=== PATIENT | female | born 1985 | race African-American/Black ===

== ENCOUNTER 2017-02-28 17:23 | Outpatient (CLI) | payer MEDICAID ==
[2017-02-28 18:26] LABS: APPEARANCE,URINE SLIGHTLY-CLOUDY; BILIRUBIN,URINE NEGATIVE (NEGATIVE); GLUCOSE, URINE NEGATIVE (NEGATIVE); KETONES,URINE TRACE mg/dL (NEGATIVE); LEUKOCYTE ESTERASE,URINE NEGATIVE (NEGATIVE); NITRITE,URINE NEGATIVE (NEGATIVE); PROTEIN,URINE NEGATIVE (NEGATIVE); URINE SPECIFIC GRAVITY 1.029; UROBILINOGEN,URINE NEGATIVE mg/dL (<2.0)
[2017-02-28 18:44] LABS: URINE BARBITURATES SCREEN NEGATIVE; URINE METHADONE SCREEN NEGATIVE; URINE OPIATES LOW NEGATIVE; URINE PHENCYCLIDINE SCREEN NEGATIVE
== END 2017-02-28 19:30 | disposition home or self-care (01) ==
LOC: EDSTATUS 17:36 → LC 17:44
PROVIDERS: ATTEND Obstetrics & Gynecology
PROC: 4A1HXCZ Monitoring of Products of Conception, Cardiac Rate, External Approach (ICD-10-PCS; principal; 2017-02-28)
DX: O46.92 Antepartum hemorrhage, unspecified, second trimester (principal); Z3A.20 20 weeks gestation of pregnancy
CPT/HCPCS: 80307; 81001; 82962

== ENCOUNTER 2017-05-28 10:41 | Outpatient (CLI) | payer MEDICAID | END 2017-05-28 11:35 | disposition home or self-care (01) | LOC: LC 10:41 | PROVIDERS: ATTEND Obstetrics & Gynecology | PROC: 4A1HXCZ Monitoring of Products of Conception, Cardiac Rate, External Approach (ICD-10-PCS; principal; 2017-05-28) | DX: Z34.93 Encounter for supervision of normal pregnancy, unspecified, third trimester (principal); Z36 Encounter for antenatal screening of mother; Z3A.33 33 weeks gestation of pregnancy | CPT/HCPCS: 59025 ==

== ENCOUNTER 2017-06-17 11:21 | Outpatient (CLI) | payer MEDICAID | END 2017-06-17 12:11 | disposition hospice, home (50) | LOC: LC 11:21 | PROVIDERS: ATTEND Obstetrics & Gynecology | PROC: 4A1HXCZ Monitoring of Products of Conception, Cardiac Rate, External Approach (ICD-10-PCS; principal; 2017-06-17) | DX: O24.913 Unspecified diabetes mellitus in pregnancy, third trimester (principal); Z3A.36 36 weeks gestation of pregnancy | CPT/HCPCS: 59025 ==

== ENCOUNTER 2017-06-28 04:03 | Inpatient (IN) | payer MEDICAID ==
--- NOTE | 2017-06-28 04:12 | Non Stress Test Report ---
Non Stress Test Datetime Report Generated by CPN: 06/28/2017 04:12 DEMOGRAPHIC EGA NST: 36.2 EGA NST: 33.3 INDICATION Indication for Study: Diabetes Mellitus; Ordered by Provider Indication for Study: Ordered by Provider VITAL SIGNS Temperature - NST: 97.6 Pulse - NST: 80 RESP - NST: 17 NBPSYS NST: 132 NBPDIA NST: 61 MONITORING Monitor Explained: Monitor Explained; Test Explained; Patient Verbalized Understanding Monitor Explained: Monitor Explained; Test Explained; Patient Verbalized Understanding Time on Monitor: 06/17/2017 11:36 Time on Monitor: 05/28/2017 10:56 Time off Monitor: 06/17/2017 12:06 Time off Monitor: 06/17/2017 12:06 NST Duration: 30 NST Duration: 10593 NST INTERVENTIONS NST Interventions: PO Hydration; Reposition Patient; Oxytocin Challenge Test NST Interventions: PO Hydration Physician Notified NST: H Jaiden CNM BABY A: [id number] BABY A Movement : Present Movement : Present Contraction Frequency : denies FHR Baseline : 135 FHR Baseline : 135 Accelerations : 15X15 Decelerations : None Variability : Moderate 6-25bpm NST Review: Meets Criteria for Reactive NST NST Review and Verified By : Hoa Barros, RN NST Results: Reactive NST REPORT Report Trigger: Send Report
[2017-06-28] MEDS ORDERED: LIDOCAINE 1% INJ-PF (10 MG/ML) 30 ML SDV ONE (04:15)
[2017-06-28] MEDS ORDERED: MISOPROSTOL 0.2 MG TABLET ONE (04:15)
[2017-06-28] MEDS ORDERED: OXYTOCIN/NORMAL SALINE 20 UNIT/1,000 ML RTUINJ ONE (04:16)
[2017-06-28] MEDS ORDERED: PENICILLIN G-K 5 MILLION UNIT VIAL ONE (04:16)
[2017-06-28] MEDS ORDERED: PENICILLIN G POTASSIUM 5,000,000 UNIT in DEXTROSE 5%-WATER 100 ML IV ONE (04:18)
[2017-06-28] MEDS ORDERED: RINGERS SOLUTION,LACTATED 1,000 ML IV PRN (04:18)
[2017-06-28 04:35] LABS: APPEARANCE,URINE SLIGHTLY-CLOUDY; BILIRUBIN,URINE NEGATIVE (NEGATIVE); GLUCOSE, URINE NEGATIVE (NEGATIVE); KETONES,URINE NEGATIVE (NEGATIVE); LEUKOCYTE ESTERASE,URINE SMALL (NEGATIVE); NITRITE,URINE NEGATIVE (NEGATIVE); PROTEIN,URINE 30 mg/dL (NEGATIVE); URINE SPECIFIC GRAVITY 1.026; UROBILINOGEN,URINE NEGATIVE mg/dL (<2.0)
[2017-06-28 04:52] LABS: URINE BARBITURATES SCREEN NEGATIVE; URINE METHADONE SCREEN NEGATIVE; URINE OPIATES LOW NEGATIVE; URINE PHENCYCLIDINE SCREEN NEGATIVE
[2017-06-28] MEDS ORDERED: PENICILLIN G-K 5 MILLION UNIT VIAL IV PRN (04:53)
[2017-06-28 05:12] LABS: ABSOLUTE BASOPHILS # (AUTO) 0.1 10^3/uL (0.0-0.2); ABSOLUTE LYMPHOCYTES (AUTO) 2.1 10^3/uL (0.5-4.7); ABSOLUTE MONOCYTES (AUTO) 0.8 10^3/uL (0.1-1.4); ABSOLUTE NEUT (AUTO) 12.8 10^3/uL (1.7-8.2); BASOPHILS % (AUTO) 0.7 % (0-2); EOSINOPHILS % (AUTO) 0.1 % (0-6); HEMOGLOBIN 12.6 g/dL (12.0-15.5); HGB HCT DIFFERENCE -0.2; LYMPHOCYTES % (AUTO) 13.5 % (13-45); MEAN CORPUSCULAR HEMOGLOBIN 30.4 pg (27.0-33.4); MEAN CORPUSCULAR VOLUME 92 fl (80-97); MONOCYTES % (AUTO) 5.1 % (3-13); RED BLOOD COUNT 4.14 10^6/uL (3.72-5.28); RED CELL DISTRIBUTION WIDTH 13.7 % (11.5-14.0); SEGMENTED NEUTROPHILS % (AUTO) 80.6 % (42-78); WHITE BLOOD COUNT 15.8 10^3/uL (4.0-10.5)
[2017-06-28 06:02] LABS: CHLAM PCR DETECTED (NOT DETECT)
[2017-06-28] MEDS ORDERED: ZOLPIDEM TARTRATE 5 MG TABLET PO PRN (06:04)
[2017-06-28] MEDS ORDERED: GLYCERIN/WITCH HAZEL LEAF 1 EACH MED..PAD TP PRN (06:04)
[2017-06-28] MEDS ORDERED: PROMETHAZINE HCL 25 MG SUPP.RECT PR PRN (06:04)
[2017-06-28] MEDS ORDERED: MAGNESIUM HYDROXIDE SUSP 30 ML UDCUP PO PRN (06:04)
[2017-06-28] MEDS ORDERED: ACETAMINOPHEN 650 MG SUPP.RECT PR PRN (06:04)
[2017-06-28] MEDS ORDERED: BENZOCAINE/MENTHOL AEROSOL SPRAY 56 ML TOP PRN (06:04)
[2017-06-28] MEDS ORDERED: OXYTOCIN/NORMAL SALINE 1,000 ML IV PRN (06:04)
[2017-06-28] MEDS ORDERED: DIBUCAINE 1% OINTMENT 28 GM TP PRN (06:04)
[2017-06-28] MEDS ORDERED: PROMETHAZINE HCL INJ 25 MG/1 ML VIAL IV PRN (06:04)
[2017-06-28] MEDS ORDERED: DIPHENHYDRAMINE HCL 25 MG CAPSULE PO PRN (06:04)
[2017-06-28] MEDS ORDERED: PROMETHAZINE HCL 25 MG TABLET PO PRN (06:04)
[2017-06-28] MEDS ORDERED: MEASLES,MUMPS&RUBELLA VACC/PF 0.5 ML VIAL SUBCUT PRN (06:04)
[2017-06-28] MEDS ORDERED: NA PHOS,M-B/NA PHOS,DI-BA (ADULT) 133 ML ENEMA PR PRN (06:04)
[2017-06-28] MEDS ORDERED: ACETAMINOPHEN WITH CODEINE #3 TABLET PO PRN ×2 (06:04)
[2017-06-28] MEDS ORDERED: IBUPROFEN 800 MG TABLET ONE (06:04)
[2017-06-28] MEDS ORDERED: DIPH/PERTUSS(ACELL)/TETANUS VAC/PF 0.5 ML SYR (>=10YO) IM PRN (06:04)
[2017-06-28] MEDS ORDERED: PSEUDOEPHEDRINE HCL 30 MG TABLET PO PRN (06:04)
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
[2017-06-28] MEDS ORDERED: PENICILLIN G POTASSIUM 2,500,000 UNIT in DEXTROSE 5%-WATER 50 ML IV SCH (08:18)
--- NOTE | 2017-06-28 09:30 | PDOC PROGRESS REPORT ---
Subjective-OB Subjective: Post Delivery Day: 32 year old. Denies any needs at this time Holding baby. Delivered at 4am, doing well, out of bed. Physical Exam (OB) Vital Signs: Temp Pulse Resp BP Pulse Ox 97.6 F 71 20 130/67 H 100 06/28/17 08:20 06/28/17 08:20 06/28/17 08:20 06/28/17 08:20 06/28/17 08:20 Intake & Output 06/27/17 06/28/17 06/29/17 06:59 06:59 06:59 Weight 105.9 kg Objective-Diagnostic Laboratory: 06/28/17 04:58 06/28/17 06/28/17 06/28/17 04:12 04:58 04:58 WBC 15.8 H RBC 4.14 Hgb 12.6 Hct 38.0 MCV 92 MCH 30.4 MCHC 33.0 RDW 13.7 Plt Count 249 Seg Neutrophils % 80.6 H Lymphocytes % 13.5 Monocytes % 5.1 Eosinophils % 0.1 Basophils % 0.7 Absolute Neutrophils 12.8 H Absolute Lymphocytes 2.1 Absolute Monocytes 0.8 Absolute Eosinophils 0.0 Absolute Basophils 0.1 Urine Color YELLOW Urine Appearance SLIGHTLY-CLOUDY Urine pH 5.0 Ur Specific [place] 1.026 Urine Protein 30 H Urine Glucose (UA) NEGATIVE Urine Ketones NEGATIVE Urine Blood LARGE H Urine Nitrite NEGATIVE Ur Leukocyte Esterase SMALL H Blood Type A POSITIVE Antibody Screen NEGATIVE Assessment and Plan(PN) - Assessment and Plan (1) Marijuana abuse Is this a current diagnosis for this admission?: Yes (2) Gestational diabetes mellitus Qualifiers: Gestational diabetes mellitus control: oral hypoglycemic-controlled Is this a current diagnosis for this admission?: Yes (3) Depression Qualifiers: Depression Type: unspecified Qualified Code(s): F32.9 - Major depressive disorder, single episode, unspecified Is this a current diagnosis for this admission?: Yes (4) Vaginal delivery Is this a current diagnosis for this admission?: Yes - Time Spent with Patient Time with patient: Less than 15 minutes Medications reviewed and adjusted accordingly: Yes - Disposition Anticipated Discharge: Home Within: within 24 hours, within 48 hours
[2017-06-28] MEDS: FAMOTIDINE 20 MG TABLET PO SCH ×2 (11:06→21:47)
[2017-06-28] MEDS: PRENATAL VITAMIN W-O CA NO5/FE FUMARATE/FA CAPSULE PO SCH (11:06)
[2017-06-28] MEDS: FERROUS SULFATE 325 MG TABLET PO SCH ×2 (11:07→18:23)
[2017-06-28] MEDS: SENNOSIDES/DOCUSATE 8.6-50 MG 1 EACH TABLET PO SCH (11:07)
[2017-06-28] MEDS: DOCUSATE SODIUM 100 MG CAPSULE PO SCH ×2 (11:08→18:22)
[2017-06-28] MEDS: IBUPROFEN 800 MG TABLET PO SCH ×2 (14:14→21:47)
[2017-06-29] MEDS: IBUPROFEN 800 MG TABLET PO SCH ×3 (05:20→21:32)
[2017-06-29 07:08] LABS: HEMATOCRIT 37.1 % (36.0-47.0); HEMOGLOBIN 12.4 g/dL (12.0-15.5); HGB HCT DIFFERENCE 0.1; MEAN CORPUSCULAR HEMOGLOBIN 30.8 pg (27.0-33.4); MEAN CORPUSCULAR HGB CONC 33.5 g/dL (32.0-36.0); MEAN CORPUSCULAR VOLUME 92 fl (80-97); RED BLOOD COUNT 4.03 10^6/uL (3.72-5.28); RED CELL DISTRIBUTION WIDTH 13.6 % (11.5-14.0); WHITE BLOOD COUNT 12.7 10^3/uL (4.0-10.5)
--- NOTE | 2017-06-29 09:06 | PDOC PROGRESS REPORT ---
Subjective-OB Subjective: Post Delivery Day: 1 32 year old. Denies any needs at this time, states pain well controlled, lochia is stable, voiding without difficulty. Physical Exam (OB) Vital Signs: Temp Pulse Resp BP Pulse Ox 98.3 F 65 16 133/72 H 100 06/29/17 07:55 06/29/17 07:55 06/29/17 07:55 06/29/17 07:55 06/29/17 07:55 Intake & Output 06/28/17 06/29/17 06/30/17 06:59 06:59 06:59 Intake Total 350 Balance 350 Weight 105.9 kg - Lochia Lochia Amount: Small 10-25 ml Lochia Color: Rubra/Red - Abdomen Description: Soft, Round Hernia Present: No Fundal Description: Firm, Midline Fundal Height: u/u - u/2 Objective-Diagnostic Laboratory: 06/29/17 06:33 06/29/17 06:33 WBC 12.7 H RBC 4.03 Hgb 12.4 Hct 37.1 MCV 92 MCH 30.8 MCHC 33.5 RDW 13.6 Plt Count 231 Assessment and Plan(PN) - Assessment and Plan (1) Depression Qualifiers: Depression Type: unspecified Qualified Code(s): F32.9 - Major depressive disorder, single episode, unspecified Is this a current diagnosis for this admission?: Yes Plan: d/c planning (2) Gestational diabetes mellitus Qualifiers: Gestational diabetes mellitus control: oral hypoglycemic-controlled Is this a current diagnosis for this admission?: Yes Plan: yearly follow up (3) Marijuana abuse Is this a current diagnosis for this admission?: Yes Plan: d/c planning (4) Vaginal delivery Is this a current diagnosis for this admission?: Yes Plan: routine pp care - Time Spent with Patient Time with patient: Less than 15 minutes Critical Time spent with patient: Less than 15 minutes Medications reviewed and adjusted accordingly: Yes - Disposition Anticipated Discharge: Home Within: within 24 hours
[2017-06-29] MEDS: DOCUSATE SODIUM 100 MG CAPSULE PO SCH ×2 (09:45→17:48)
[2017-06-29] MEDS: PRENATAL VITAMIN W-O CA NO5/FE FUMARATE/FA CAPSULE PO SCH (09:45)
[2017-06-29] MEDS: FERROUS SULFATE 325 MG TABLET PO SCH ×3 (09:45→17:48)
[2017-06-29] MEDS: FAMOTIDINE 20 MG TABLET PO SCH ×2 (09:46→21:32)
[2017-06-29] MEDS: SENNOSIDES/DOCUSATE 8.6-50 MG 1 EACH TABLET PO SCH (09:46)
[2017-06-30] MEDS: IBUPROFEN 800 MG TABLET PO SCH (05:07)
[2017-06-30] MEDS ORDERED: AZITHROMYCIN 250 MG TABLET PO ONE (07:00)
[2017-06-30] MEDS: PRENATAL VITAMIN W-O CA NO5/FE FUMARATE/FA CAPSULE PO SCH (09:28)
[2017-06-30] MEDS: DOCUSATE SODIUM 100 MG CAPSULE PO SCH (09:28)
[2017-06-30] MEDS: FAMOTIDINE 20 MG TABLET PO SCH (09:28)
[2017-06-30] MEDS: SENNOSIDES/DOCUSATE 8.6-50 MG 1 EACH TABLET PO SCH (09:29)
--- NOTE | 2017-06-30 09:57 | PDOC PROGRESS REPORT ---
Subjective-OB Subjective: Post Delivery Day: 32 year old. Denies any needs at this time Doing well, ready to go home, breast/btl feeding, will check her BS at room Physical Exam (OB) Vital Signs: Temp Pulse Resp BP Pulse Ox 98.5 F 83 18 143/69 H 100 06/30/17 07:31 06/30/17 07:31 06/30/17 07:31 06/30/17 07:31 06/30/17 07:31 Intake & Output 06/29/17 06/30/17 07/01/17 06:59 06:59 06:59 Intake Total 350 250 Balance 350 250 - Lochia Lochia Amount: Scant < 10 ml Lochia Color: Rubra/Red - Abdomen Description: Soft Hernia Present: No Fundal Description: Firm, Midline Fundal Height: u/u - u/2 Objective-Diagnostic Laboratory: 06/29/17 06:33 Assessment and Plan(PN) - Assessment and Plan (1) Marijuana abuse Is this a current diagnosis for this admission?: Yes (2) Gestational diabetes mellitus Qualifiers: Gestational diabetes mellitus control: oral hypoglycemic-controlled Trimester: first trimester Qualified Code(s): O24.415 - Gestational diabetes mellitus in , controlled by oral hypoglycemic drugs Is this a current diagnosis for this admission?: Yes (3) Depression Qualifiers: Depression Type: unspecified Qualified Code(s): F32.9 - Major depressive disorder, single episode, unspecified Is this a current diagnosis for this admission?: Yes (4) Vaginal delivery Is this a current diagnosis for this admission?: Yes - Time Spent with Patient Time with patient: Less than 15 minutes Medications reviewed and adjusted accordingly: Yes - Disposition Anticipated Discharge: Home Within: Other - home today
--- NOTE | 2017-06-30 10:01 | PDOC DISCHARGE SUMMARY ---
Final Diagnosis Discharge Date: 06/30/17 - Final Diagnosis (1) Marijuana abuse Is this a current diagnosis for this admission?: Yes (2) Gestational diabetes mellitus Is this a current diagnosis for this admission?: Yes (3) Depression Is this a current diagnosis for this admission?: Yes (4) Vaginal delivery Is this a current diagnosis for this admission?: Yes Discharge Data - Discharge Medication Home Medications: Glyburide [Diabeta 2.5 mg Tablet] 5 mg PO BID 02/28/17 Gestational Age: 37.6 Reason(s) for Admission: Onset of Labor, Gestional Diabetes Procedures: NST, Ultrasound Intrapartum Procedure(s): Spontaneous Vaginal Delivery Complication(s): Laceration-Periurethral Laceration-Degree: 2nd - [place] Data Baby 1 Female at 1 minute: 8 at 5 minutes: 9 Weight: 2.948 kg Home with Mother: Yes Complications: No - Diagnosis Test Laboratory: Temp Pulse Resp BP Pulse Ox 98.5 F 83 18 143/69 H 100 06/30/17 07:31 06/30/17 07:31 06/30/17 07:31 06/30/17 07:31 06/30/17 07:31 06/28/17 06/28/17 06/29/17 04:12 04:58 06:33 RBC 4.14 4.03 Hgb 12.6 12.4 Hct 38.0 37.1 Urine Opiates Screen NEGATIVE - Discharge information/Instructions Discharge Activity: Activity As Tolerated, No Lifting Over 10 Pounds, No Lifting /Push/Pulling, Pelvic Rest Discharge Diet: As Tolerated, Regular Disposition: HOME, SELF-CARE Follow up with: [facility] in: 4, Weeks
[2017-06-30 10:21] VITALS: BP 133/69
--- NOTE | 2017-07-01 12:29 | Delivery Summary ---
Del Sum A-C Datetime Report Generated by CPN: 07/01/2017 12:28 DELIVERY PERSONNEL DELIVERY PERSONNEL: [id number] Delivery Doctor:: Familia Delgado, Labor and Delivery Nurse:: Estephania Espinosa RNadministrative office assistant Nurse:: Kathryn Mendoza RN Sintering Press Operator:: Linette Hughes RN Nursery Nurse:: Vibha Denise RN Additional Personnel: : Gilda Toledo RN MATERNAL INFORMATION Delivery Anesthesia: None Medications After Delivery: Pitocin Bolus-Please Comment; Pitocin Drip 20 Units/1000ml NSS Meds After Delivery Comment: ns with pitocin 20 units/liter ivf bolus Estimated Blood Loss (ml): 250 Maternal Complications: Precipitous Labor (<3hrs) Provider Comments: of viable female infant in SEKOU position Placenta delievered spontaneous and intact with 3v cord Fundus firm LABOR SUMMARY EDC: 07/13/2017 00:00 No. Babies in Womb: 1 Attempted: No Labor Anesthesia: None LABOR INFORMATION Reason for Induction: Not Applicable Onset of Labor: 06/28/2017 04:09 Complete Dilatation: 06/28/2017 04:26 Oxytocin: N/A Group B Beta Strep: positive Antibiotics # of Doses: 0 Steroids Given: None Reason Steroids Not Administered: Not Applicable MEMBRANES Membranes Rupture Method: Artificial Rupture of Membranes: 06/28/2017 04:27 Length of Rupture (hr): 0.02 Amniotic Fluid Color: Moderate Meconium Amniotic Fluid Amount: Moderate Amniotic Fluid Odor: Normal STAGES OF LABOR Stage 1 hr: 0 Stage 1 min: 17 Stage 2 hr: 0 Stage 2 min: 2 Stage 3 hr: 0 Stage 3 min: 2 Total Time in Labor hr: 0 Total Time in Labor min: 21 VAGINAL DELIVERY Episiotomy: None Laceration #1: Periurethral Laceration Extension #1: Second Degree Laceration Repair: Yes Laceration Repair Note: Repaired with 3-0 chromic in usual fashion with good hemostasis Sponge Count Correct: Yes Sharps Count Correct: Yes CSECTION DELIVERY Primary Indication: N/A Secondary Indication: N/A CSection Incidence: N/A Labor: N/A Elective: N/A CSection Incision: N/A BABY A INFORMATION Infant Delivery Date/Time: 06/28/2017 04:28 Method of Delivery: Vaginal Method of Delivery: Vaginal Born in Route : No : N/A Forceps: N/A Vacuum Extraction: N/A Shoulder Dystocia : No PRESENTATION/POSITION BABY A Presentation: Cephalic Cephalic Presentation: Vertex Vertex Position: Right Occipital Anterior Breech Presentation: N/A PLACENTA INFORMATION BABY A Placenta Delivery Time : 06/28/2017 04:30 Placenta Method of Delivery: Spontaneous Placenta Status: Delivered SCORES BABY A Heart Rate 1 min: >100 bpm Resp Effort 1 min: Good Cry Reflex Irritability 1 min: Cough or Sneeze or Pulls Away Muscle Tone 1 min: Active Motion Color 1 min: Blue/Pale Resuscitation Effort 1 min: Tactile Stimulation SCORE 1 MIN: 8 Heart Rate 5 min: >100 bpm Resp Effort 5 min: Good Cry Reflex Irritability 5 min: Cough or Sneeze or Pulls Away Muscle Tone 5 min: Active Motion Color 5 min: Body [place], Extremities Blue Resuscitation Effort 5 min: Tactile Stimulation SCORE 5 MIN: 9 INFORMATION BABY A Gestational Age at Delivery: 37.6 Gestational Status: Early Term- 37- 38.6 Weeks Infant Outcome : Liveborn Infant Condition : Stable Infant Sex: Female Infant Sex: Female IDENTIFICATION BABY A Verification Date/Time: 06/28/2017 04:55 ID Band Number: [id number] Mother's Name Verified: Yes Infant RN Verifying : rn [facility] Additional Verifying Personnel: rn mendoza WEIGHT/LENGTH BABY A Infant Birthweight (gm): 2940 Infant Weight (lb): 6 Infant Weight (oz): 8 Length (in): 18.50 Infant Length (cm): 46.99 CORD INFORMATION BABY A No. Cord Vessels: 3 Nuchal Cord : N/A Cord Blood Taken: Yes-For Storage (Mom's Blood type +) Infant Suction: Mouth; Nose ASSESSMENT BABY A Infant Complications: Meconium Physical Findings at Delivery: Within Normal Limits Infant Respirations: Appears Normal Skin to Skin: Yes Skin to Skin Time (min): 15 Director Report/ALS Called : No Care By: S Camelia RN Transferred To: [facility] BABY B INFORMATION : N/A SIGNATURES Signature: with User ID: [email or web address]
== END 2017-06-30 11:49 | disposition home or self-care (01) | DRG 775 ==
LOC: LC 04:03 → LR 04:19 → 2S 06:36
PROVIDERS: ADMIT Obstetrics & Gynecology; ATTEND Obstetrics & Gynecology
PROC: 10E0XZZ Delivery of Products of Conception, External Approach (ICD-10-PCS; principal; 2017-06-28)
PROC: 0KQM0ZZ Repair Perineum Muscle, Open Approach (ICD-10-PCS; 2017-06-28)
PROC: 3E0234Z Introduction of Serum, Toxoid and Vaccine into Muscle, Percutaneous Approach (ICD-10-PCS; 2017-06-30)
DX: O62.3 Precipitate labor (principal); O99.324 Drug use complicating childbirth; F12.20 Cannabis dependence, uncomplicated; O99.334 Smoking (tobacco) complicating childbirth; F17.210 Nicotine dependence, cigarettes, uncomplicated; O99.824 Streptococcus B carrier state complicating childbirth; O71.82 Other specified trauma to perineum and vulva; O77.0 Labor and delivery complicated by meconium in amniotic fluid; Z3A.37 37 weeks gestation of pregnancy; Z37.0 Single live birth; O24.425 Gestational diabetes mellitus in childbirth, controlled by oral hypoglycemic drugs; F32.9 Major depressive disorder, single episode, unspecified; O99.344 Other mental disorders complicating childbirth; Z23 Encounter for immunization
CPT/HCPCS: 36415; 59025; 80307; 81005; 85025; 85027; 86592; 86850; 86900; 86901; 87491; 87591; 88307; 90715; G0480; J2540; J2590; J3490